=== PATIENT | male | born 1955 | race Caucasian/White ===

== ENCOUNTER → 2024-05-16 | Outpatient (REF) | payer MEDICARE ==
[~2024-05-16] MED LIST: AZELASTINE137 MCG/0.; LIPITOR40 MG PO; PANTOPRAZOLE SO40 MG PO; PLAVIX75 MG PO; TYLENOL WITH C1 EACH PO; ZESTRIL20 MG PO; ZOLPIDEM TARTRA10 MG PO
== END ==
LOC: RAD 10:56
PROVIDERS: ATTEND Internal Medicine
DX: S63.92XA Sprain of unspecified part of left wrist and hand, initial encounter (principal)